=== PATIENT | male | born 1955 | race African-American/Black ===

== ENCOUNTER 2021-03-24 08:25 | Inpatient (IN) | payer OTHER ==
[2021-03-24 09:08] VITALS: BMI 20.7
[2021-03-24] MEDS ORDERED: BISMUTH SUBSALICYLATE 262 MG/15 ML BTL PO PRN (09:28)
[2021-03-24] MEDS ORDERED: MAGNESIUM CITRATE 300 ML BOTTLE PO PRN (09:28)
[2021-03-24] MEDS ORDERED: ACETAMINOPHEN 325 MG TABLET (FP) PO PRN (09:28)
[2021-03-24] MEDS ORDERED: IBUPROFEN 400 MG TABLET (FP) PO PRN (09:28)
[2021-03-24] MEDS ORDERED: MAGNESIUM HYDROX 2400MG/30ML ORAL SUSPENSION 30 ML CUP PO PRN (09:28)
[2021-03-24] MEDS ORDERED: MAG HYDROX/AL HYDROX/SIMETH 30 ML UNIT-DOSE CUP PO PRN (09:28)
[2021-03-24] MEDS ORDERED: ONDANSETRON *ODT* 4 MG TABLET SL PRN (09:28)
[2021-03-24] MEDS: PRENATAL VITAMINS W/ FOLIC ACID TABLET (FP) PO SCH (13:15)
[2021-03-24] MEDS: hydrOXYzine PAMOATE 25 MG CAPSULE (FP) PO SCH ×4 (13:16→22:52)
[2021-03-24] MEDS: NICOTINE 10 MG CARTRIDGE (INHALER) IH PRN (18:31)
[2021-03-24] MEDS: THIAMINE HCL 100 MG TABLET (FP) PO SCH (22:41)
[2021-03-24] MEDS: MELATONIN 5 MG TABLETS PO SCH (22:41)
[2021-03-25] MEDS: hydrOXYzine PAMOATE 25 MG CAPSULE (FP) PO SCH ×5 (07:06→22:15)
[2021-03-25] MEDS ORDERED: LORazepam 0.5 MG TABLET PO PRN (09:00)
[2021-03-25 10:32] LABS: HEMATOCRIT 39.4 % (35.4-49); HEMOGLOBIN 12.9 GM/dL (11.7-16.9); MCH 30.7 pg (25.7-33.7); MCHC 32.7 g/dl (32.0-35.9); MEAN CELL VOLUME 93.9 fl (80-96); MEAN PLT VOLUME 8.5 fl (7.5-11.1); PLATELET COUNT 193 10^3/uL (134-434); RDW 12.4 % (11.9-15.9); WHITE BLOOD COUNT 3.8 K/mm3 (4.0-10.0)
[2021-03-25] MEDS: ASPIRIN COATED 81 MG TABLET.EC PO SCH (10:36)
[2021-03-25] MEDS: LORazepam 1 MG TABLET PO SCH ×3 (10:37→22:14)
[2021-03-25] MEDS: PRENATAL VITAMINS W/ FOLIC ACID TABLET (FP) PO SCH (10:38)
[2021-03-25 10:43] LABS: ALBUMIN 3.4 g/dl (3.4-5.0); BLOOD UREA NITROGEN 10.9 mg/dL (7-18)
[2021-03-25 10:48] LABS: BILIRUBIN,TOTAL 1.5 mg/dL (0.2-1); TOT PROT 6.6 g/dl (6.4-8.2)
[2021-03-25] MEDS: NICOTINE 10 MG CARTRIDGE (INHALER) IH PRN (10:49)
[2021-03-25] MEDS: RIVAROXABAN 20 MG TABLET PO SCH (19:07)
[2021-03-25] MEDS: THIAMINE HCL 100 MG TABLET (FP) PO SCH (22:14)
[2021-03-25] MEDS: ATORVASTATIN CA 80 MG TABLET (FP) PO SCH (22:14)
[2021-03-25] MEDS: MELATONIN 5 MG TABLETS PO SCH (22:14)
[2021-03-26] MEDS: LORazepam 0.5 MG TABLET PO SCH ×4 (05:15→22:24)
[2021-03-26] MEDS: hydrOXYzine PAMOATE 25 MG CAPSULE (FP) PO SCH ×5 (05:15→22:23)
[2021-03-26] MEDS: PRENATAL VITAMINS W/ FOLIC ACID TABLET (FP) PO SCH (10:18)
[2021-03-26] MEDS: ASPIRIN COATED 81 MG TABLET.EC PO SCH (10:18)
[2021-03-26] MEDS: NICOTINE 10 MG CARTRIDGE (INHALER) IH PRN (14:28)
[2021-03-26] MEDS: RIVAROXABAN 20 MG TABLET PO SCH (18:11)
[2021-03-26] MEDS: ACETAMINOPHEN 325 MG TABLET (FP) PO PRN (18:13)
[2021-03-26] MEDS: MENTHOL/PHENOL 1 EACH UD MM PRN ×2 (18:14→22:26)
[2021-03-26] MEDS: THIAMINE HCL 100 MG TABLET (FP) PO SCH (22:23)
[2021-03-26] MEDS: ATORVASTATIN CA 80 MG TABLET (FP) PO SCH (22:23)
[2021-03-26] MEDS: MELATONIN 5 MG TABLETS PO SCH (22:23)
[2021-03-26] MEDS: METHOCARBAMOL 500 MG TABLET PO PRN (22:26)
[2021-03-27] MEDS ORDERED: LORazepam 0.5 MG TABLET PO ONE (05:00)
[2021-03-27] MEDS: hydrOXYzine PAMOATE 25 MG CAPSULE (FP) PO SCH ×5 (05:20→22:18)
[2021-03-27] MEDS: PRENATAL VITAMINS W/ FOLIC ACID TABLET (FP) PO SCH (10:38)
[2021-03-27] MEDS: ASPIRIN COATED 81 MG TABLET.EC PO SCH (10:38)
[2021-03-27] MEDS: ACETAMINOPHEN 325 MG TABLET (FP) PO PRN (10:40)
[2021-03-27] MEDS: MENTHOL/PHENOL 1 EACH UD MM PRN ×2 (10:43→18:37)
[2021-03-27] MEDS: NICOTINE 10 MG CARTRIDGE (INHALER) IH PRN (11:01)
[2021-03-27] MEDS: RIVAROXABAN 20 MG TABLET PO SCH (18:23)
[2021-03-27] MEDS: METHOCARBAMOL 500 MG TABLET PO PRN (18:25)
[2021-03-27] MEDS: MELATONIN 5 MG TABLETS PO SCH (22:18)
[2021-03-27] MEDS: ATORVASTATIN CA 80 MG TABLET (FP) PO SCH (22:18)
[2021-03-27] MEDS: THIAMINE HCL 100 MG TABLET (FP) PO SCH (22:18)
[2021-03-28] MEDS: hydrOXYzine PAMOATE 25 MG CAPSULE (FP) PO SCH (05:19)
[2021-03-28] MEDS ORDERED: LORazepam 0.5 MG TABLET PO ONE (06:00)
[2021-03-28 09:23] VITALS: BP 116/73; PULSE 60; TEMP 97.2
[2021-03-28] MEDS: NICOTINE 10 MG CARTRIDGE (INHALER) IH PRN (10:17)
[2021-03-28] MEDS: MENTHOL/PHENOL 1 EACH UD MM PRN (10:18)
== END 2021-03-28 10:18 | disposition home or self-care (01) | DRG 897 ==
LOC: YASAS 08:25 → Y3N 10:58
PROVIDERS: ADMIT Allergy & Immunology; ATTEND Allergy & Immunology
PROC: HZ2ZZZZ Detoxification Services for Substance Abuse Treatment (ICD-10-PCS; principal; 2021-03-24)
DX: F10.230 Alcohol dependence with withdrawal, uncomplicated (principal); F14.20 Cocaine dependence, uncomplicated; F12.20 Cannabis dependence, uncomplicated; F17.210 Nicotine dependence, cigarettes, uncomplicated; I10 Essential (primary) hypertension; I25.10 Atherosclerotic heart disease of native coronary artery without angina pectoris; E78.5 Hyperlipidemia, unspecified; D72.819 Decreased white blood cell count, unspecified; Z86.73 Personal history of transient ischemic attack (TIA), and cerebral infarction without residual deficits
CPT/HCPCS: 36415; 80053; 85027; 86780; C9803; U0003; U0005